=== PATIENT | female | born 1975 | race Two or more races ===

== ENCOUNTER 2019-12-09 14:01 | Outpatient (REF) | payer MEDICAID, SELFPAY ==
--- NOTE | 2019-12-09 14:06 | MM_ITS ---
EXAMINATION: MM SCREENING DIGITAL BREAST TOMOSYNTHESIS, BILATERAL CLINICAL INFORMATION: Screening. Asymptomatic. The lifetime risk of breast cancer based on the Tyrer-Cuzick Model is 7.2%. COMPARISON: Mammography: December 03, 2018 and studies dating back to August 10, 2014 TECHNIQUE: Digital breast tomosynthesis is performed in both the craniocaudal and mediolateral oblique views along with computer-aided detection (CAD). Synthesized 2D images are generated from the tomosynthesis. FINDINGS: There are scattered areas of fibroglandular density (ACR BI-RADS breast composition Category b). There are no significant masses, abnormal calcifications, or other abnormalities. MM/MM tomosynthesis screening BI IMPRESSION: There are no significant changes from prior study. ASSESSMENT: BI-RADS 1: Negative RECOMMENDATION: Routine annual mammography screening. This patient's information was entered into a reminder system with a target due date for their next mammogram.
== END 2019-12-09 14:02 | disposition home or self-care (01) ==
LOC: HO.MAMMO 14:01
PROVIDERS: Visit Provider Family Medicine
DX: Z12.31 Encounter for screening mammogram for malignant neoplasm of breast (principal)
CPT/HCPCS: 77063; 77067

== ENCOUNTER → 2020-04-14 13:59 | Outpatient (BNVA) | payer MEDICAID, SELFPAY | PROVIDERS: PCP Family Medicine; Visit Provider Advanced Practice Midwife ==

== ENCOUNTER 2021-01-16 12:40 | Outpatient (REF) | payer MEDICAID, SELFPAY ==
--- NOTE | ~2021-01-16 | MM_ITS ---
EXAMINATION: MM SCREENING DIGITAL BREAST TOMOSYNTHESIS, BILATERAL CLINICAL INFORMATION: Screening. Asymptomatic. The lifetime risk of breast cancer based on the Tyrer-Cuzick Model is 7%. COMPARISON: Mammography: 12/09/2019, 12/03/2018, 09/09/2017 TECHNIQUE: Digital breast tomosynthesis is performed in both the craniocaudal and mediolateral oblique views along with computer-aided detection (CAD). Synthesized 2D images are generated from the tomosynthesis. Additional right CC view is provided. FINDINGS: There are scattered areas of fibroglandular density (ACR BI-RADS breast composition Category b). There are no significant masses, abnormal calcifications, or other abnormalities. Parenchymal pattern is similar to prior studies. No developing density. No significant changes. MM/MM tomosynthesis screening BI IMPRESSION: No mammographic evidence of malignancy. ASSESSMENT: BI-RADS 1: Negative RECOMMENDATION: Routine annual mammography screening. This patient's information was entered into a reminder system with a target due date for their next mammogram.
== END 2021-01-16 12:41 | disposition home or self-care (01) ==
LOC: HO.MAMMO 12:40
PROVIDERS: PCP Family Medicine; Visit Provider Family Medicine
DX: Z12.31 Encounter for screening mammogram for malignant neoplasm of breast (principal)
CPT/HCPCS: 77063; 77067

== ENCOUNTER 2022-01-18 12:41 | Outpatient (REF) | payer MEDICAID, SELFPAY ==
--- NOTE | ~2022-01-18 | MM_ITS ---
EXAMINATION: MM SCREENING DIGITAL BREAST TOMOSYNTHESIS, BILATERAL CLINICAL INFORMATION: Screening. Asymptomatic. The lifetime risk of breast cancer based on the Tyrer-Cuzick Model is 7.4%. COMPARISON: Mammography: January 16, 2021 and studies dating back to August 10, 2014 TECHNIQUE: Digital breast tomosynthesis is performed in both the craniocaudal and mediolateral oblique views along with computer-aided detection (CAD). Synthesized 2D images are generated from the tomosynthesis. FINDINGS: There are scattered areas of fibroglandular density (ACR BI-RADS breast composition Category b). There are no significant masses, abnormal calcifications, or other abnormalities. MM/MM tomosynthesis screening BI IMPRESSION: No significant changes from prior exam. ASSESSMENT: BI-RADS 1: Negative RECOMMENDATION: Routine annual mammography screening. This patient's information was entered into a reminder system with a target due date for their next mammogram.
== END 2022-01-18 12:42 | disposition home or self-care (01) ==
LOC: HO.MAMMO 12:41
PROVIDERS: Visit Provider Family Medicine
DX: Z12.31 Encounter for screening mammogram for malignant neoplasm of breast (principal)
CPT/HCPCS: 77063; 77067

== ENCOUNTER 2022-06-12 08:58 | Outpatient (RCR) | payer MEDICAID, SELFPAY | END 2022-07-02 15:22 | disposition home or self-care (01) | LOC: HO.PT 08:58 | PROVIDERS: PCP Family Medicine; Visit Provider Family Medicine | DX: M25.512 Pain in left shoulder (principal); G89.29 Other chronic pain | CPT/HCPCS: 97110; 97162 ==

== ENCOUNTER 2022-08-01 11:03 | Outpatient (REF) | payer MEDICAID, SELFPAY ==
[2022-08-02 09:21] LABS: BV Int Neg Control Negative (Negative); BV Int Pos Control Positive (Positive)
== END 2022-08-01 11:04 | disposition home or self-care (01) ==
LOC: HO.LAB 11:03
PROVIDERS: PCP Family Medicine; Visit Provider Advanced Practice Midwife
DX: Z01.419 Encounter for gynecological examination (general) (routine) without abnormal findings (principal); N89.8 Other specified noninflammatory disorders of vagina; R23.2 Flushing
CPT/HCPCS: 87480; 87510; 87660

== ENCOUNTER 2022-08-01 11:36 | Outpatient (REF) | payer MEDICAID, SELFPAY ==
[2022-08-07 07:43] LABS: HPV mRNA E6/E7 rflx Not Detected (Not Detected)
== END 2022-08-01 11:37 | disposition home or self-care (01) ==
LOC: HO.LNP 11:36
PROVIDERS: Visit Provider Advanced Practice Midwife
DX: Z01.419 Encounter for gynecological examination (general) (routine) without abnormal findings (principal); N89.8 Other specified noninflammatory disorders of vagina
CPT/HCPCS: 87624; 88142

== ENCOUNTER 2022-09-17 09:59 | Outpatient (REF) | payer MEDICAID, SELFPAY ==
[2022-09-17 11:55] LABS: Estimated Average Glucose 88 mg/dL; Hemoglobin A1c % 4.7 %
[2022-09-17 13:08] LABS: Cholesterol 151 mg/dL; HDL Cholesterol 42 mg/dL; LDL Cholesterol Calculated 94 mg/dl; Triglycerides 79 mg/dL
[2022-09-17 13:10] LABS: TSH reflex Free T4 1.67 uIU/mL (0.32-4.0)
[2022-09-17 13:46] LABS: Reflex LDLD? No
== END 2022-09-17 10:00 | disposition home or self-care (01) ==
LOC: HO.LAB 09:59
PROVIDERS: Visit Provider Family Medicine
DX: E03.9 Hypothyroidism, unspecified (principal); E66.09 Other obesity due to excess calories; Z68.33 Body mass index [BMI] 33.0-33.9, adult; R73.01 Impaired fasting glucose
CPT/HCPCS: 36415; 80061; 83036; 84443

== ENCOUNTER 2022-10-19 18:07 | Outpatient (REF) | payer MEDICAID, SELFPAY ==
[2022-10-20 07:26] LABS: CT PCR NOT DETECTED (Not Detect.); NG PCR NOT DETECTED (Not Detect.)
[2022-10-20 14:13] LABS: BV Int Neg Control Negative (Negative); BV Int Pos Control Positive (Positive)
== END 2022-10-19 18:08 | disposition home or self-care (01) ==
LOC: HO.LNP 18:07
PROVIDERS: Visit Provider Registered Nurse
DX: N89.8 Other specified noninflammatory disorders of vagina (principal); R30.0 Dysuria
CPT/HCPCS: 0353U; 87086; 87088; 87186; 87480; 87510; 87660

== ENCOUNTER 2022-11-13 11:51 | Outpatient (REF) | payer MEDICAID, SELFPAY | END 2022-11-13 11:52 | disposition home or self-care (01) | LOC: HO.HOSX 11:51 | PROVIDERS: Visit Provider Orthopaedic Surgery | DX: Z13.89 Encounter for screening for other disorder (principal) ==

== ENCOUNTER 2023-01-24 12:17 | Outpatient (REF) | payer MEDICAID, SELFPAY ==
--- NOTE | ~2023-01-24 | MM_ITS ---
EXAMINATION: MM SCREENING DIGITAL BREAST TOMOSYNTHESIS, BILATERAL CLINICAL INFORMATION: Screening. Asymptomatic. COMPARISON: Mammography: 01/18/2022, 12/09/2019, 12/03/2018, 09/09/2017 TECHNIQUE: Digital breast tomosynthesis is performed in both the craniocaudal and mediolateral oblique views along with computer-aided detection (CAD). Synthesized 2D images are generated from the tomosynthesis. An additional right MLO with nipple in profile was included. FINDINGS: There are scattered areas of fibroglandular density (ACR BI-RADS breast composition Category b). There are no suspicious masses, suspicious grouped calcifications, or areas of architectural distortion in either breast. The parenchymal pattern is stable from prior exams. No skin or axillary changes. MM/MM tomosynthesis screening BI IMPRESSION: No mammographic evidence of malignancy. ASSESSMENT: BI-RADS BI-RADS 1 - Negative RECOMMENDATION: Routine annual mammography screening. 1 year F/U This examination should not preclude the clinical evaluation of a suspicious palpable abnormality. This patient's information was entered into a reminder system with a target due date for their next mammogram.
== END 2023-01-24 12:18 | disposition home or self-care (01) ==
LOC: HO.MAMMO 12:17
PROVIDERS: PCP Family Medicine; Visit Provider Family Medicine
DX: Z12.31 Encounter for screening mammogram for malignant neoplasm of breast (principal)
CPT/HCPCS: 77063; 77067

== ENCOUNTER → 2023-01-24 12:30 | Outpatient (BNV) | payer MEDICAID, SELFPAY | PROVIDERS: PCP Family Medicine; Visit Provider Radiology Diagnostic Radiology | DX: Z12.31 Encounter for screening mammogram for malignant neoplasm of breast (principal) | CPT/HCPCS: 77063; 77067 ==

== ENCOUNTER 2023-10-09 10:35 | Outpatient (AMB) | payer MEDICAID, SELFPAY ==
--- NOTE | 2023-10-09 10:46 | MHC.OFFVIS ---
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 She is doing well with no concerns. Current Mirena user, inserted September 2016. Occasional bleeding noted. Attempting to eat a healthy diet with calcium and vitamin D and stays active with exercise. Currently sexually active. Denies any vaginal dryness or irritation. STI testing offered; she accepts. Last pap smear; 2022. Last mammogram; 2022. Colonoscopy is UTD. Denies any family history of breast, ovarian or colon cancer. [facility] Medical History Hypothyroidism (acquired) Surgical History No history of previous surgery Family History Father HIV (human immunodeficiency virus infection) Maternal Grandmother HTN (hypertension) Social History Alcohol intake: current Alcohol intake frequency: a few times a month Patient Tobacco Use Status: Never used Tobacco Sexual orientation: Straight/Heterosexual Gender identity: Female Female Reproductive History Menstrual Age of Menarche: 13 control method: progestin IUCD (Mirena 10/04) Total pregnancies: 4 Full term: 2 Number of Living Children: 2 Ab induced: 1 Ab spontaneous: 1 Date of last pap smear: 08/01/22 (neg pap and hpv) Date of Mammogram: 01/24/23 (Birad 1) Review of Systems Const All systems reviewed & are unremarkable except as noted in HPI and below Reports as per HPI Eyes Reports no additional complaints ENT Reports no additional complaints Card Reports no additional complaints Resp Reports no additional complaints GI Reports as per HPI and Reports no additional complaints Reports as per HPI Musc Reports no additional complaints Skin/Breast Reports as per HPI Neuro Reports no additional complaints Psych Reports no additional complaints Endo Reports no additional complaints Zeus/Lymph Reports no additional complaints Aller/Immun Reports no additional complaints Physical Exam Vital Signs: Last Vital Signs BP 110/72 10/09/23 10:47 BMI result Body Mass Index 34.2 Const General: cooperative, healthy appearing, no acute distress, well developed and alert Orientation/consciousness: patient oriented x3 HEENT Head: Yes normal to inspection Eyes General: appearance normal, both eyes and all related structures Neck Neck: Yes normal visual inspection Thyroid: Thyroid normal Chest Chest palpation & inspection: normal inspection of the chest and other (no puckering, dimpling, peau de orange, retraction, discharge, masses) Breast/axilla inspection: normal inspection of the breasts Breast/axilla palpation: normal palpation of the breasts Resp Effort & Inspection: normal respiratory effort GI Inspection: Yes normal to inspection Palpation (GI): Soft to palpation Rectal Exam - Female: deferred General: Yes bladder normal to palpation External Female Exam: normal external appearance and normal appearance of the urethra Speculum Exam - Vagina: normal appearance of the vagina, normal palpation and normal vaginal discharge Speculum Exam - Cervix: normal appearance of the cervix, normal palpation and Other cervical findings present (IUD string short at os) Bimanual exam- vagina & uterus: normal bimanual exam, normal palpation, uterine size normal, bladder normal to palpation, normal palpation and non-tender Bimanual Exam- Adnexa, other: no masses Skin General skin exam: no rashes or lesions noted Rashes: no rashes Neuro General: patient oriented x3 Cognition (Neuro): normal cognition Extrem General: Yes normal to inspection Psych Attitude: cooperative Thought process: Normal thought process present Assessment & Plan Assessment & Plan (1) Encounter for well woman exam with routine gynecological exam: Code(s): Z01.419 - Encounter for gynecological examination (general) (routine) without abnormal findings Category: Medical Plan Discussed: Current recommendations for pap smears per ASCCP guidelines. Breast awareness, periodic self breast exams and yearly mammogram. Maintain a healthy lifestyle, well balanced diet including Calcium 1,200 mg and Vitamin D 600 IU daily, and routine exercise. Review plan for IUD removal at next visit. Use of condoms if indicated to prevent STDs. Patient verbalizes understanding and agrees to the plan of care. She was given opportunity to ask questions and all questions were answered to the best of my ability. RTO in 1 year for annual machine fur cleaner exam. This note is constructed using voice recognition software. While every effort has been made to ensure accuracy, skate shop attendant errors may have been included. Coding Level of Care Code Est Pt Prev Care 40-64y(96396) Diagnoses Encounter for well woman exam with routine gynecological exam Z01.419
[2023-10-09 10:47] VITALS: BP 110/72; BMI 34.2
== END 2023-10-09 11:13 | disposition home or self-care (01) ==
PROVIDERS: PCP Family Medicine; Visit Provider Advanced Practice Midwife
DX: Z01.419 Encounter for gynecological examination (general) (routine) without abnormal findings (principal)
CPT/HCPCS: 99396

== ENCOUNTER → 2023-10-09 10:35 | Outpatient (BNVA) | payer MEDICAID, SELFPAY | PROVIDERS: PCP Family Medicine; Visit Provider Advanced Practice Midwife | DX: Z01.419 Encounter for gynecological examination (general) (routine) without abnormal findings (principal) | CPT/HCPCS: 99396 ==

== ENCOUNTER 2024-04-27 09:53 | Outpatient (REF) | payer OTHER, SELFPAY ==
--- OUTSIDE RECORDS SUMMARY | 2024-04-27 10:50 | XMS_ITS | Encounter Summary ---
Author Organization [employer] Address [address] [facility] [address] [place] [address] Care Team Providers Care Corporate Legal Secretary Name Role Phone Alexus Rizzo MD Primary Care Provider [phone] Reason for Visit * Reason Comments Pre-visit Planning SDOH screening posit miky and Tobacco screening negative Encounter Details Date Type Department Care Team ([facility] st Contact Info) Description 04/15/2024 Patient Outreach [facility] MEDICINE [address] [place], [place] [phone] Alexus Rizzo MD [address] [place], [place] [phone] Pre-visit Planning (SDOH screening positive and Tobacco screening negative) Social History Tobacco Use Types Packs/Day Years Used Date Smoking Tobacco: Former Cigarettes 0.3 18 S tarted: 04/23/2006 Passive Smoke Exposure: Past Smokeless Tobacco: Never Housing Stability Answer Date Recorded What is your housing situation today? I have arti lovett 02/18/[address] you li ve. Do you have problems with any of the following? None of the above 02/18/2024 Food Insecurity Answer Date Recorded Within the past 12 months, y ou worried that your food would run out before you got money to buy more: Sometimes True 2023 Within the past 12 months,th e food you bought just didn't last and you didn't have enough money to get more: Sometimes True 02/18/2024 Transportation Answer Date Recorded In the past 12 months, has l ack of transportation kept you from medical appts, meetings, work or from getting things needed for daily living? No 02/18/2024 Utilities Answer Date Recorded In the past 12 months, has t he electric, gas, oil or water company threatened to shut off services in your home? No 02/18/2024 Internet Access Answer Date Recorded Internet Access Q1 Yes 02/18/2024 Internet Access Q2 Not on file 02/18/2024 Comments Unknown Sex and Gender Information Value Date Recorded Sex Assigned at Female 12/18/2021 10:16 AM EDT Legal Sex Female 10:16 AM EDT Gender Identity Female 12/18/2021 10:16 AM EDT Sexual Orientation Straight 12/18/2021 10 :16 AM EDT documented as of this encounter Progress Notes * Elvie Henriquez - 04/15/2024 2:40 PM EST CC Elvie Barr placed successful outbound call to patient for pre-visit planning. Patient name and confirmed. Patient confirms appt date and time, and has transportation arrangements. Biggest concern for appointment at this time is will discuss her concerns when she sees PCP in person. Patient advised to bring to appointment a photo id and insurance card. Appropriate screenings completed in anticipation of appointment. SDOH positive. Patient looking for assistance with Food insecurities: Sometimes. Referral will be placed. documented in this encounter Plan of Treatment Not on file documented as of this encounter Visit Diagnoses Not on filedocumented in this encounter Care Teams Corporate Legal Secretary Relationship Specialty Start Date End Date Alexus Rizzo MD [address] [place] [phone] PCP - General Family Medicine 02/18/18 documented as of this encounter
--- OUTSIDE RECORDS SUMMARY | 2024-04-27 10:50 | XMS_ITS | Encounter Summary ---
Author Organization [employer] Address [address] [facility] 7[address] [place] [address] Care Team Providers Care Health Evaluator Name Role Phone Alexus Rizzo MD Primary Care Provider [phone] Reason for Visit * Reason Onset Date Comments Chart Prep 04/03/2024 Encounter Details Date Type Department Care Team (Late st Contact Info) Description 04/03/2024 Telephone [facility] MEDICINE [address] [place], [place] [phone] Alexus Rizzo MD [address] [place], [place] [phone] Chart Prep Social History Tobacco Use Types Packs/Day Years [...] AM EDT documented as of this encounter Miscellaneous Notes * Telephone Encounter - Tiffany Youssef [place] - 04/03/2024 10:51 AM EST Chart Prep Labs: done Images: not done Vaccines due: Covid Due, Tdap Due, Hep B Due, PCV20 Due, Flu Due, and Shingles in pharmacy Due Referrals: Not Applicable Screenings: Colonoscopy and HIV screening Overdue care gaps: Sbirt and PHQ-9 documented in this encounter Plan of Treatment Not on file documented as of this encounter Visit Diagnoses Not on filedocumented in this encounter Care Teams Health Evaluator Relationship Specialty Start Date End Date Alexus Rizzo MD [address] [place] [phone] PCP - General Family Medicine 02/18/18 documented as of this encounter
--- OUTSIDE RECORDS SUMMARY | 2024-04-27 10:50 | XMS_ITS | Encounter Summary ---
Author Organization [employer] Address [address] [facility] 7[address] [place] [address] Care Team Providers Care Commercial Loan Administrator Name Role Phone Alexus Rizzo MD Primary Care Provider [phone] Reason for Visit * Reason Comments Care Coordination CHW outreach for SDO H PT-1 and food needs-LVM Encounter Details Date Type Department Care Team (Latest Contact Info) Description 04/15/2024 Patient Outreach [facility] MEDICINE [address] [place], [place] [phone] Alexus Rizzo MD [address] [place], [place] [phone] Care Coordination (CHW outreach for SDOH PT-1 and food needs-LVM ) Social History Tobacco Use Types Packs/Day Years Used Date Smoking Tobacco: Former Cigarettes 0.3 18 S tarted: 04/23/2006 Passive Smoke Exposure: Past Smokeless Tobacco: Never Housing Stability Answer Date Recorded What is your housing situation today? I have artiesteban lovett 02/18/[address] you [...] as of this encounter Progress Notes * All Zepeda - 04/15/2024 3:01 PM EST CHW All Zepeda, placed outbound call to patient for assistance with SDOH as a referral was placed by the provider. Patient had screened positive for the following SDOH insecurities. No answer atthis time. Patient's name and were not confirmed. CHW left detailed message and provided contact information requesting return call for assistance. Patient educated on extended clinic hours on Mondays through Wednesdays, and Walk-In Urgent Care Located in [facility]. Patient provided with after-hours line for [facility], , which offer night time triage service and option to transfer toon call provider if needed. documented in this encounter Plan of Treatment Not on file documented as of this encounter Visit Diagnoses Not on filedocumented in this encounter Care Teams Commercial Loan Administrator Relationship Specialty Start Date End Date Alexus Rizzo MD [address] [place] [phone] PCP - General Family Medicine 02/18/18 documented as of this encounter
--- OUTSIDE RECORDS SUMMARY | 2024-04-27 10:50 | XMS_ITS | Encounter Summary ---
Author Organization [employer] Address [address] [facility] [address] [place] [address] Care Team Providers Care Surgical Manager Name Role Phone Alexus Rizzo MD Primary Care Provider Reason for Referral * Medications - Closed Specialty Diagnoses / Procedures Referred By [facility] branch Referred To Contact Diagnoses Class 2 severe obesity due to excess calories with serious comorbidity and body mass index (BMI) of 36.0 to 36.9 in adult ([facility]) Alexus Rizzo MD [address] [place] [address] Phone: tel: fax: Referral ID Status Reason Start Date Expiration Date Visits Re quested Visits Authorized [id number] Closed 04/27/2024 04/27/2025 1 1 * Medications - Closed Specialty Diagnoses / Procedures Referred By Porfirio branch Referred To Contact Diagnoses Intrinsic atopic dermatitis Alexus Rizzo MD [address] [place] [address] Phone: tel: fax: Referral ID Status Reason Start Date Expiration Date Visits Re quested Visits Authorized [id number] Closed 04/27/2024 04/27/2025 1 1 Encounter Details Date Type Department Care Team (Late st Contact Info) Description 04/27/2024 9:00 AM EDT Office Visit [facility] MEDICINE [address] [place] [address] Alexus Rizzo MD [address] [place] [address] [phone] Routine general medical examination at a health care facility (Primary Dx); Chronic left shoulder pain; Impaired fasting glucose; Acquired hypothyroidism; Intrinsic atopic dermatitis; Food allergy; Allergic rhinitis, unspecified seasonality, unspecified trigger; Dietary counseling; Exercise counseling; Class 2 severe obesity due to excess calories with serious comorbidity and body mass index (BMI) of 36.0 to 36.9 in adult ([facility]); Screening for lipid disorders; Screening for diabetes mellitus; Vitamin D deficiency; Encounter for immunization Social History Tobacco Use Types Packs/Day Years Used Date Smoking Tobacco: Former Cigarettes 0.3 18 S tarted: 04/23/2006 Passive Smoke Exposure: Past Smokeless Tobacco: Never Tobacco Cessation:Counseling Given: Not Answered Depression Answer Date Recorded Patient Health Questionnaire-9 Score 12 04/27/2024 Patient Health Questionnaire-9 Score 12 04/27/2024 Last PHQ-9: Questionnaire Data Not on file 0 04/27/2024 Housing Stability Answer Date Recorded What is [...] off services in your home? No 02/18/2024 Depression Answer Date Recorded Patient Health Questionnaire-2 Score 2 04/27/2024 Internet Access Answer Date Recorded Internet Access Q1 Yes 02/18/2024 Internet Access Q2 Not on file 02/18/2024 Comments Unknown Sex and Gender Information Value Date Recorded Sex Assigned at Female 12/18/2021 10:16 AM EDT Legal Sex Female 10:16 AM EDT Gender Identity Female 12/18/2021 10:16 AM EDT Sexual Orientation Straight 12/18/2021 10 :16 AM EDT documented as of this encounter Last Filed Vital Signs Vital Sign Reading Time Taken Comments Blood Pressure 110/67 04/27/2024 9:06 AM EDT Pulse 78 04/27/2024 9:06 AM EDT Temperature 36.1 ??C (96.9 ??F) 04/27/2024 9:06 AM ED T Respiratory Rate 12 04/27/2024 9:06 AM EDT Oxygen Saturation - - Inhaled Oxygen Concentration - - Weight 91.3 kg (201 lb 3.2 oz) 04/27/2024 9:06 A M EDT Height 157.5 cm (5' 2 ) 04/27/2024 9:06 AM EDT Body Mass Index 36.8 04/27/2024 9:06 AM EDT documented in this encounter Miscellaneous Notes * Assessment & Plan Note - Enid Mcmanus MA - 04/27/2024 9:43 AM EDTAssociated Problem(s): Obesity - Completed Phentermine. Will start GLP 1 Zepbound 04/27/24 * Assessment & Plan Note - Enid Mcmanus MA - 04/27/2024 8:57 AM EDTAssociated Problem(s): Allergic rhinitis -previously antihistamine -take as needed * Assessment & Plan Note - Enid Mcmanus MA - 04/27/2024 8:57 AM EDTAssociated Problem(s): Food allergy - allergic reaction to blueberry - continue avoidance - refer for allergy testing - continue carrying Epi-pen * Assessment & Plan Note - Enid Mcmanus MA - 04/27/2024 8:57 AM EDTAssociated Problem(s): Intrinsic atopic dermatitis - referred to traffic law attorney -liberal moisturization -judicious use of topical steroid -avoid irritation * Assessment & Plan Note - Enid Mcmanus MA - 04/27/2024 8:57 AM EDTAssociated Problem(s): Impaired fasting glucose - diabetes screen * Assessment & Plan Note - Enid Mcmanus MA - 04/27/2024 8:57 AM EDTAssociated Problem(s): Acquired hypothyroidism Richie's autoimmune thyroiditis Last lab:11/01/20 TSH 1.85 Current replacement: levothyroxine 112 mcg daily Continue current replacement. * Assessment & Plan Note - Enid Mcmanus MA - 04/27/2024 8:56 AM EDTAssociated Problem(s): Chronic left shoulder pain - likely tendinitis - she attended PT, and is not doing home exercise program - judicious use of NSAIDs and APAP - give X-ray order again documented in this encounter Plan of Treatment Scheduled Orders Name Type Priority Associated Diagnoses Orde r Schedule TSH with Reflex to Free T4 Lab Routine Acquired hypothyroidism Expected: 04/27/2024 (Approximate), Expires: 04/26/2025 Hemoglobin A1c Lab Routine Impaired fasting glucose Screening for diabetes mellitus Expected: 04/27/2024 (Approximate), Expires: 04/26/2025 Comprehensive Metabolic Panel Lab Routine Class 2 severe obesity due to excess calories with serious comorbidity and body mass index (BMI) of 36.0 to 36.9 in adult ([facility]) Expected: 04/27/2024 (Approximate), Expires: 04/26/2025 Lipid Panel with Reflex to Direct LDL Lab Routine Class 2 severe obesity due to excess calories with serious comorbidity and body mass index (BMI) of 36.0 to 36.9 in adult ([facility]) Screening for lipid disorders Expected: 04/27/2024 (Approximate), Expires: 04/26/2025 Vitamin D, 25-Hydroxy, Total, Immunoassay Lab Routine Vitamin D deficiency Expected: 04/27/2024 (Approximate), Expires: 04/27/2025 documented as of this encounter Visit Diagnoses Diagnosis Routine general medical examination at a health care facility- Primary Chronic left shoulder pain Pain in joint, shoulder region Impaired fasting glucose Acquired hypothyroidism Unspecified hypothyroidism Intrinsic atopic dermatitis Food allergy Dermatitis due to food taken internally Allergic rhinitis, unspecified seasonality, unspecified trigger Dietary counseling Dietary surveillance and counseling Exercise counseling Class 2 severe obesity due to excess calories with serious comorbidity and body mass index (BMI) of 36.0 to 36.9 in adult ([facility]) Screening for lipid disorders Screening for diabetes mellitus Vitamin D deficiency Encounter for immunization documented in this encounter Additional Health Concerns Assessment Noted Time PHQ-9 Depression Total Score: 12 025 10:10 AM EDT documented as of this encounter Care Teams Surgical Manager Relationship Specialty Start Date End Date Alexus Rizzo MD [address] [place] [phone] PCP - General Family Medicine 02/18/18 documented as of this encounter
--- OUTSIDE RECORDS SUMMARY | 2024-04-27 10:50 | XMS_ITS | Encounter Summary ---
Author Organization [employer] Address 75 [facility] 7t [place] [address] Care Team Providers Care Mail Handler Sorter Name Role Phone Alexus Rizzo MD Primary Care Provider [phone] Reason for Visit * Reason Onset Date Comments chart prep 04/23/2024 Encounter Details Date Type Department Care Team (Late st Contact Info) Description 04/23/2024 Telephone [facility] MEDICINE [address] [place], [place] [phone] Alexus Rizzo MD [address] [place], [place] [phone] chart prep Social History Tobacco Use Types Packs/Day Years [...] encounter Miscellaneous Notes * Telephone Encounter - Jojo Haider [place] - 04/23/2024 9:18 AM EST ..chart Prep Labs: not applicable Images: not applicable Vaccines due: Covid Due, Tdap Due, Hep B Due, and Flu Due Referrals: Not Applicable Screenings: Colonoscopy Overdue care gaps: Sbirt, PHQ-9, and meli-7 documented in this encounter Plan of Treatment Not on file documented as of this encounter Visit Diagnoses Not on filedocumented in this encounter Care Teams Mail Handler Sorter Relationship Specialty Start Date End Date Alexus Rizzo MD [address] [place] [address] PCP - General Family Medicine 02/18/18 documented as of this encounter
--- OUTSIDE RECORDS SUMMARY | 2024-04-27 10:51 | XMS_ITS | Encounter Summary ---
Author Organization [employer] Address 75 [facility] 7t [place] [address] Care Team Providers Care Sand And Gravel Plant Operator Name Role Phone Alexus Rizzo MD Primary Care Provider [phone] Reason for Visit * Reason Onset Date Comments Medication Question 02/01/2023 Encounter Details Date Type Department Care Team ([facility] st Contact Info) Description 02/01/2023 Telephone [facility] MEDICINE [address] [place], [place] [phone] Alexus Rizzo MD [address] [place], [place] [phone] Medication Question Social History Tobacco Use Types Packs/Day Years Used Date Smoking Tobacco: Some Days Cigarettes 0.3 18 Started: 04/23/2006 Passive Smoke Exposure: Past Smokeless Tobacco: Never Comments Unknown Sex and Gender Information Value Date Recorded Sex Assigned at Female 12/18/2021 10:16 AM EDT Legal Sex Female 10:16 AM EDT Gender Identity Female 12/18/2021 10:16 AM EDT Sexual Orientation Straight 12/18/2021 10 :16 AM EDT documented as of this encounter Miscellaneous Notes * Telephone Encounter - Alexus Rizzo MD - 02/01/2023 4:22 PM EST Spoke with the pt and reviewed side effect of phentermine. Pt would like to try. Phentermine 15 mg daily script sent. May need higher dose, but will assess in 3 mo. * Telephone Encounter - Brian Dunn - 02/01/2023 10:08 AM EST Tc from pt requesting clarification on weight loss medication discussed during follow up 09/11/22. Please contact pt at [phone]. documented in this encounter Plan of Treatment Not on file documented as of this encounter Visit Diagnoses Not on filedocumented in this encounter Care Teams [employer] Gra[employer] Plant Operator Relationship Specialty Start Date End Date Alexus Rizzo MD [address] [place] [id number] PCP - General Family Medicine 02/18/18 documented as of this encounter
--- OUTSIDE RECORDS SUMMARY | 2024-04-27 10:51 | XMS_ITS | Clinical Summary ---
Author Organization [employer] Address 75 [facility] 7t [place] [address] Care Team Providers Care Transport Rn Name Role Phone Alexus Rizzo MD Primary Care Provider [phone] Allergies Active Allergy Reactions Criticality Noted Date Comments Vaccinium Angustifolium 07/20/[address] [facility] Medications EPINEPHrine (Epipen) 0.3 MG/0.3ML injection syringeIndicati ons:Food allergy Inject 0.3 mL (0.3 mg) as directed 1 (one) time for 1 dose. use as directed for allergic reaction and then call 911 if you develop difficulty breathing or swelling. 1 each 2 05/09/19 23 Active levothyroxine (Synthroid, Levoxyl) 112 MCG tablet TAKE 1 TABLET BY MOUTH EVERY DAY 90 tablet 1 01/03/20 24 Active betamethasone dipropionate (Diprosone) 0.05 % ointmentIndicat ions:Intrinsic atopic dermatitis Apply topically 2 times daily. to affected area 15 g 04/28/19 25 Active Tirzepatide-Moisés ght Management (Zepbound) 2.5 MG/0.5ML solution auto-injectorIn dications:Class 2 severe obesity due to excess calories with serious comorbidity and body mass index (BMI) of 36.0 to 36.9 in adult ([facility]) Inject 0.5 mL (2.5 mg) under the skin 1 (one) time per week. 2 mL 11 04/28/19 25 Active betamethasone dipropionate (Diprolene) 0.05 % ointmentIndicat ions:Intrinsic atopic dermatitis APPLY TO AFFECTED AREA TWICE A DAY 15 g 01/01/20 23 025 Discontinued(R eorder (will not trigger notification to Pharmacy)) phentermine 15 MG capsule Take 1 capsule (15 mg) by mouth before breakfast. 90 capsule 02/02/20 025 Discontinued(M ed list cleanup (will not trigger notification to Pharmacy)) Active Problems Problem Noted Date Diagnosed Date Psychophysiological insomnia 09/15/2022 Assessment & Plan (09/15/2022 4:35 PM EDT): - avoid caffeinated beverage - recommended to avoid screen time 1-2 hours before going to bed Food allergy 05/13/2022 Assessment & Plan (04/27/2024 8:57 AM EDT): - allergic reaction to blueberry - continue avoidance - refer for allergy testing - continue carrying Epi-pen Assessment & Plan (05/13/2022 7:23 AM EDT): - allergic reaction to blueberry - continue avoidance - refer for allergy testing - continue carrying Epi-pen Moderate episode of recurrent major depressive d isorder 05/08/2022 Assessment & Plan (09/15/2022 4:36 PM EDT): -continue fluoxetine -pt was referred to counseling but has not called back because of her busy schedule -she was able to contract her safety today -refer back again Assessment & Plan (05/08/2022 3:05 PM EDT): -continue fluoxetine -pt was referred to counseling but has not called back because of her busy schedule -she was able to contract her safety today -advised to recontact counseling when she has more free time Intrinsic atopic dermatitis 05/08/2022 Assessment & Plan (04/27/2024 8:57 AM EDT): - referred to family manager -liberal moisturization -judicious use of topical steroid -avoid irritation Assessment & Plan (09/15/2022 4:34 PM EDT): - referred to family manager -liberal moisturization -judicious use of topical steroid -avoid irritation Assessment & Plan (05/08/2022 3:08 PM EDT): Will refer to Dermatology -liberal moisturization -judicious use of topical steroid -avoid irritation Skin tag 05/08/2022 Assessment & Plan (05/08/2022 3:11 PM EDT): Will refer to Dermatology for removal Chronic left shoulder pain 05/08/2022 Assessment & Plan (04/27/2024 8:56 AM EDT): - likely tendinitis - she attended PT, and is not doing home exercise program - judicious use of NSAIDs and APAP - give X-ray order again Assessment & Plan (09/15/2022 4:32 PM EDT): - likely tendinitis - she attended PT, and is not doing home exercise program - judicious use of NSAIDs and APAP - give X-ray order again Assessment & Plan (05/13/2022 7:21 AM EDT): - likely tendinitis - evaluate with X-ray - start PT - judicious use of NSAIDs and APAP Acquired hypothyroidism 05/11/2015 Assessment & Plan (04/27/2024 8:57 AM EDT): Richie's autoimmune thyroiditis Last lab:11/01/20 TSH 1.85 Current replacement: levothyroxine 112 mcg daily Continue current replacement. Assessment & Plan (09/15/2022 4:33 PM EDT): Richie's autoimmune thyroiditis Last lab:11/01/20 TSH 1.85 Current replacement: levothyroxine 112 mcg daily Continue current replacement. Assessment & Plan (05/08/2022 3:06 PM EDT): Richie's autoimmune thyroiditis Last lab:11/01/20 TSH 1.85 Current replacement: levothyroxine 112 mcg daily Continue current replacement. Impaired fasting glucose 07/31/2014 Assessment & Plan (04/27/2024 8:57 AM EDT): - diabetes screen Assessment & Plan (09/15/2022 4:33 PM EDT): - diabetes screen Assessment & Plan (05/13/2022 7:21 AM EDT): - diabetes screen Allergic rhinitis 07/20/2014 Assessment & Plan (04/27/2024 8:57 AM EDT): -previously antihistamine -take as needed Assessment & Plan (05/13/2022 7:24 AM EDT): -previously antihistamine -take as needed Obesity 11/20/2011 Assessment & Plan (04/27/2024 9:43 AM EDT): - Completed Phentermine. Will start GLP 1 Zepbound 04/27/24 Encounters Date Type Department Care Team Description 04/27/2024 9:00 AM EDT Office Visit [address] [address] Alexus Rizzo MD Routine general medical examination at a health care facility (Primary Dx); Chronic left shoulder pain; Impaired fasting glucose; Acquired hypothyroidism; Intrinsic atopic dermatitis; Food allergy; Allergic rhinitis, unspecified seasonality, unspecified trigger; Dietary counseling; Exercise counseling; Class 2 severe obesity due to excess calories with serious comorbidity and body mass index (BMI) of 36.0 to 36.9 in adult ([facility]); Screening for lipid disorders; Screening for diabetes mellitus; Vitamin D deficiency; Encounter for immunization 04/27/2024 Travel 04/23/[address] [address] Alexus Rizzo MD chart prep 04/15/2024 Patient Outreach [address] [address] Alexus Rizzo MD Care Coordination (CHW outreach for SDOH PT-1 and food needs-LVM ) 04/15/2024 Patient Outreach [address] [address] Alexus Rizzo MD Pre-visit Planning (SDOH screening positive and Tobacco screening negative) 04/03/[address] [address] Alexus Rizzo MD Chart Prep 02/27/[address] [phone] Alexus Rizzo MD Nurse Triage 02/18/2024 Patient Outreach [address] [address] Alexus Rizzo MD Care Coordination (CHW outreach for SDOH PT-1 and food needs-LVM ) 02/18/2024 Patient Outreach [address] [address] Alexus Rizzo MD Pre-visit Planning (SDOH Screening positive and Tobacco screening negative) 02/13/[address] [phone] Alexus Rizzo MD Chart Prep from Last 3 Months Immunizations Name Administration Dates Next Due Influenza injectable quadriv alent IIV4 with preservative 12/03/2017 Influenza injectable quadrivalent preservative f ree 01/12/2019 Influenza, Split (incl. purified surface antigen ) 11/06/2012,02/08/2012 Influenza, seasonal, injectable, preservative fr ee 04/27/2024 Pfizer Covid-19 Vaccine 12+ 04/27/2024 Pneumococcal Conjugate PCV 20 04/27/2024 Pneumococcal Polysaccharide PPSV23 02/09/2011 Tdap 04/27/2024,02/09/2011 Social History Tobacco Use Types Packs/Day Years [...] Orientation Straight 12/18/2021 10 :16 AM EDT Last Filed Vital Signs Vital Sign Reading Time Taken Comments Blood Pressure 110/67 04/27/2024 9:06 AM EDT Pulse 78 04/27/2024 9:06 AM EDT Temperature 36.1 ??C (96.9 ??F) 04/27/2024 9:06 AM ED T Respiratory Rate 12 04/27/2024 9:06 AM EDT Oxygen Saturation 96% 10/19/2022 9:49 AM EDT Inhaled Oxygen Concentration - - Weight 91.3 kg (201 lb 3.2 oz) 04/27/2024 9:06 A M EDT Height 157.5 cm (5' 2 ) 04/27/2024 9:06 AM EDT Body Mass Index 36.8 04/27/2024 9:06 AM EDT Plan of Treatment Health Maintenance Due Date Last Done Comments CT Colonography 1973 Colonoscopy 1973 Colorectal Cancer Screening 1973 FIT DNA/Cologuard 1973 FIT 1973 FOBT 1973 Sigmoidoscopy 1973 Family Planning (PISQ) 1988 Hepatitis B Vaccines (1 of 3 - 19+ 3-dose series) 1992 Pap Smear 1994 Zoster Vaccines (1 of 2) 07/20/2023 Depression Monitoring (PHQ-9) 10/28/2024 04/27/2024, 04/27/2024 Mammogram 01/24/2025 01/24/2023, 12/0 02/2021, 01/18/2022, Additional history exists SDOH Screening 04/15/2025 04/15/2024 Alcohol/Substance Use Screening 04/27/2025 04/27/2024 Depression Screening 04/27/2025 04/27/2024, 04/28/19 Tobacco Screening 04/27/2025 04/27/2024 Cervical Cancer Screening 08/02/2027 HPV/Cotest 08/02/2027 08/01/2022 Lipid Panel 09/18/2027 09/17/2022, 12/17/2019 DTaP/Tdap/Td Vaccines (3 - Td or Tdap) 04/27/2034 04/27/2024, 02/09/2011 RSV Patients and Patients Aged 60 years or older (1 - 1-dose 75+ series) 2048 COVID-19 Vaccine Completed 04/27/2024, , 06/27/2020, Additional history exists Influenza Vaccine Completed 04/27/2024, , 12/03/2017, Additional history exists Pneumococcal Vaccine: 50+ Years Completed 04/27/2024, 02/09/2011 HIB Vaccines Aged Out No longer eligi ble based on patient's age to complete this topic HIV Screening Discontinued HPV Vaccines Aged Out No longer eligi ble based on patient's age to complete this topic Hepatitis A Vaccines Aged Out No long er eligible based on patient's age to complete this topic Hepatitis C Screening Discontinued IPV Vaccines Aged Out No longer eligi ble based on patient's age to complete this topic Meningococcal Vaccine Aged Out No reanna carina eligible based on patient's age to complete this topic RSV under 20 months Aged Out No longe r eligible based on patient's age to complete this topic Rotavirus Vaccines Aged Out No longer eligible based on patient's age to complete this topic Procedures Procedure Name Priority Date/Time Associated Diagnosis Comments BI MAMMOGRAM SCREENING TOMOSYNTHESIS BILATERAL Routine 01/24/2023 12:30 PM EST LIPID PANEL WITH REFLEX TO DIRECT LDL Routine 09/17/2022 10:17 AM EDT Class 1 obesity due to excess calories without serious comorbidity with body mass index (BMI) of 33.0 to 33.9 in adult HPV MRNA E6/E7 REFLEX TO HPV 16, 18/45 Routine 08/01/2022 11:36 AM EDT from Last 3 Months or Most Recently Relevant to Health Maintenance Results * BI Mammogram Screening Tomosynthesis Bilateral (01/24/2023 12:30 PM EST) Anatomical Region Laterality Modality Breast Bilateral Mammography 01/24/2023 12:3 0 PM EST Narrative 01/31/2023 11:05 AM EST ? [facility] ? [address] ?[place] [address] ? Mammography Report ? Signed ? Patient: Bassem,Ekaterina ?MR#: [id number] ? : 1975 ?Acct:[id number] ? Age/Sex: 47 / F ?ADM Date: 01/24/ ? Loc: HO.MAMMO ? Attending Dr: Alexus Rizzo MD ? Ordering Physician: Alexus Rizzo MD ?Results: 1Negative ? Date of Service: 01/24/ ?Follow Up: 1 Year From Orig ?? inal Mammogram ? Procedure(s): MM tomosynthesis screening BI ?? Accession Number(s): [id number] ? cc: Alexus Rizzo MD ? EXAMINATION: ?? MM SCREENING DIGITAL BREAST TOMOSYNTHESIS, BILATERAL ? CLINICAL INFORMATION: ? Screening. Asymptomatic. ? COMPARISON: ?? Mammography: 01/18/2022, 12/09/2019, 12/03/2018, 09/09/2017 ? TECHNIQUE: ?? Digital breast tomosynthesis is performed in both the craniocaudal and ?? mediolateral oblique views along with computer-aided detection (CAD). ?? Synthesized 2D images are generated from the tomosynthesis. ??An ?? additional right MLO with nipple in profile was included. ? FINDINGS: ?? There are scattered areas of fibroglandular density (ACR BI-RADS breast ?? composition Category b). ? There are no suspicious masses, suspicious grouped calcifications, or ?? areas of architectural distortion in either breast. The parenchymal ?? pattern is stable from prior exams. ??No skin or axillary changes. ? MM/MM tomosynthesis screening BI ?? IMPRESSION: ?? No mammographic evidence of malignancy. ? ASSESSMENT: ? BI-RADS BI-RADS 1 - Negative ? RECOMMENDATION: ?? Routine annual mammography screening. ? 1 year F/U ? This examination should not preclude the clinical evaluation of a ?? suspicious palpable abnormality. ? This patient's information was entered into a reminder system with a ?? target due date for their next mammogram. ? Dictated By: ?Simon Drew MD ? Signed By: ?<Electronically signed by Simon Drew MD in OV> ?01/31/23 1101 ? DD/ 1230 ? TD/TT: ? Anesthesiologists' Assistant: ? Procedure Note Margaret Loza - 01/31/2023 [facility] [address] [place] [address] [place] [address] Mammography Report Signed Patient: Ekaterina LuevanoMR#: [id number] : 1975Acct:[id number] Age/Sex: 47 / FADM Date: 01/24/23 Loc: HO.MAMMO Attending Dr: Alexus Rizzo MD Ordering Physician: Alexus Rizzo MDResults: 1Negative Date of Service: 01/24/23Follow Up: 1 Year From Orig ina Mammogram Procedure(s): MM tomosynthesis screening BI Accession Number(s): [id number] cc: Alexus Rizzo MD EXAMINATION: MM SCREENING DIGITAL BREAST TOMOSYNTHESIS, BILATERAL CLINICAL INFORMATION: Screening. Asymptomatic. COMPARISON: Mammography: 01/18/2022, 12/09/2019, 12/03/2018, 09/09/2017 TECHNIQUE: Digital breast tomosynthesis is performed in both the craniocaudal and mediolateral oblique views along with computer-aided detection (CAD). Synthesized 2D images are generated from the tomosynthesis. An additional right MLO with nipple in profile was included. FINDINGS: There are scattered areas of fibroglandular density (ACR BI-RADS breast composition Category b). There are no suspicious masses, suspicious grouped calcifications, or areas of architectural distortion in either breast. The parenchymal pattern is stable from prior exams. No skin or axillary changes. MM/MM tomosynthesis screening BI IMPRESSION: No mammographic evidence of malignancy. ASSESSMENT: BI-RADS BI-RADS 1 - Negative RECOMMENDATION: Routine annual mammography screening. 1 year F/U This examination should not preclude the clinical evaluation of a suspicious palpable abnormality. This patient's information was entered into a reminder system with a target due date for their next mammogram. Dictated By: Simon Drew MD Signed By: <Electronically signed by Simon Drew MD in OV> 01/31/23 1101 DD/ 1230 TD/TT: Anesthesiologists' Assistant: us Alexus Rizzo MD IMG BI PROCEDURES Final Result * Lipid Panel with Reflex to Direct LDL (09/17/2022 10:17 AM EDT) Triglycerides 79 mg/dL [facility] Comment:Desirable Triglyceri de: less than 150 mg/dLBorderline High Triglyceride 150-199 mg/dLHigh Triglyceride: 200-499 mg/dLVery High Triglyceride: greater than or equal to 5OO mg/dL Cholesterol 151 mg/dL [facility] Comment:Desirable Cholestero l: less than 200 mg/dLBorderline High Cholesterol: 200-239 mg/dLHigh Cholesterol: greater than 239 mg/dL LDL Cholesterol Calculated 94 mg/dl [facility] Comment:Desirable LDL: less than 100 mg/dLNear Optimal/Above Optimal LDL: 110- 129 mg/dLBorderline High LDL: 130-159 mg/dLHigh LDL: 160-189 mg/dLVery High LDL: greater than or equal to 190 mg/dL HDL Cholesterol 42 mg/dL [facility] Comment:Desirable HDL: great er than 40 mg/dL Note: This HDL assay may give artificially low results in patients with liver disease. Blood 09/17/2022 10:1 7 AM EDT 09/17/2022 10:17 AM EDT Alexus Rizzo MD LAB BLOOD ORDERABLES Final Resul t [facility] [address] [place] [address] [phone] from Last 3 Months or Most Recently Relevant to Health Maintenance Insurance [facility] Care Teams Transport Rn Relationship Specialty Start Date End Date Alexus Rizzo MD [address] [place] [id number] PCP - General Family Medicine 02/18/18
--- OUTSIDE RECORDS SUMMARY | 2024-04-27 10:51 | XMS_ITS | Encounter Summary ---
Author Organization [employer] Address [address] [facility] [address] 7[address] [place] [address] Care Team Providers Care Vice President Underwriting Name Role Phone Alexus Rizzo MD Primary Care Provider [phone] Encounter Details Date Type Department Care Team (Latest Contact Info) Description 04/27/2024 Travel Social History Tobacco Use Types Packs/Day Years Used Date Smoking Tobacco: Former Cigarettes 0.3 18 S tarted: 04/23/2006 Passive Smoke Exposure: Past Smokeless Tobacco: Never Depression Answer Date Recorded Patient Health Questionnaire-9 [...] AM EDT documented as of this encounter Plan of Treatment Not on file documented as of this encounter Visit Diagnoses Not on filedocumented in this encounter Additional Health Concerns Assessment Noted Time PHQ-9 Depression Total Score: 12 025 10:10 AM EDT documented as of this encounter Care Teams Vice President Underwriting Relationship Specialty Start Date End Date Alexus Rizzo MD [address] [place] [address] PCP - General Family Medicine 02/18/18 documented as of this encounter
--- OUTSIDE RECORDS SUMMARY | 2024-04-27 10:51 | XMS_ITS | Encounter Summary ---
Author Organization [employer] Address 75 [facility] 7t [place] [address] Care Team Providers Care Disability Manager Name Role Phone Alexus Rizzo MD Primary Care Provider [phone] Encounter Details Date Type Department Care Team (Late st Contact Info) Description 02/01/2023 Orders Only [facility] MEDICINE [address] [place], [place] [phone] Alexus Rizzo MD [address] [place], [place] [phone] Social History Tobacco Use Types Packs/Day Years [...] on filedocumented in this encounter Care Teams Disability Manager Relationship Specialty Start Date End Date Alexus Rizzo MD [address] [place], [place] [phone] PCP - General Family Medicine 02/18/18 documented as of this encounter
[2024-04-27 11:40] LABS: Estimated Average Glucose 97 mg/dL; Hemoglobin A1C 112.9797 umol/L
[2024-04-27 12:06] LABS: Alanine Aminotransferase 22 U/L (0-31); Alkaline Phosphatase 92 U/L (39-117); Anion Gap 11 (12-20); Aspartate Amino Transferase 21 U/L (5-31); Bilirubin Total 0.6 mg/dL (0.0-1.0); Blood Urea Nitrogen 13 mg/dL (9-16); Carbon Dioxide 23 mmol/L (22-29); Chloride 111 mmol/L (96-108); Cholesterol 192 mg/dL (<200); Estimated Glomerular Filt Rate > 60; Glucose Random 102 mg/dL (60-115); HDL Cholesterol 52 mg/dL (>40); LDL Cholesterol Calculated 109 mg/dL (<100); Sodium 141 mmol/L (135-145); TSH reflex Free T4 0.54 uIU/mL (0.32-4.0); Triglycerides 157 mg/dL (<150); Vitamin D 25-OH Total 38.1 ng/mL (>30)
[2024-04-27 13:21] LABS: Reflex LDLD? No
== END 2024-04-27 09:54 | disposition home or self-care (01) ==
LOC: HO.HHCL 09:53
PROVIDERS: Visit Provider Family Medicine
DX: Z13.220 Encounter for screening for lipoid disorders (principal); R73.01 Impaired fasting glucose; E03.9 Hypothyroidism, unspecified; E66.812 Obesity, class 2; E66.01 Morbid (severe) obesity due to excess calories; Z68.36 Body mass index [BMI] 36.0-36.9, adult; E55.9 Vitamin D deficiency, unspecified
CPT/HCPCS: 36415; 80053; 80061; 82306; 83036; 84443

== ENCOUNTER 2024-06-05 08:37 | Outpatient (REF) | payer OTHER, SELFPAY ==
--- NOTE | ~2024-06-05 | US_ITS ---
EXAMINATION: MM DIAGNOSTIC DIGITAL BREAST TOMOSYNTHESIS, BILATERAL Bilateral Limited ultrasound. CLINICAL INFORMATION: Physician felt palpable lumps in the upper outer quadrants of both breasts. Right breast pain comes and goes. COMPARISON: Mammography: Comparison is made with relevant prior exams. TECHNIQUE: Digital breast mammography with tomosynthesis is performed in both the craniocaudal and mediolateral oblique views along with computer-aided detection (CAD). FINDINGS: There are scattered areas of fibroglandular density (ACR BI-RADS breast composition Category b). There are no significant masses, abnormal calcifications, or other abnormalities. Targeted color Doppler ultrasound scanning in the areas of the patient's palpable lumps upper outer quadrants demonstrates normal fibroglandular breast tissue. In the right breast area of pain demonstrates normal fibroglandular breast tissue. Scanning was performed to the right breast from 9-1 o'clock and left breast 12-5 o'clock. There is no sonographic abnormality. Results are provided to the patient at time of visit by the technologist. US/US breast BI limited mamm only IMPRESSION: No mammographic or sonographic abnormality to account for the patient's right breast pain and bilateral physician felt palpable lumps. Recommend clinical evaluation and follow-up. ASSESSMENT: BI-RADS BI-RADS 1 - Negative RECOMMENDATION: 1 year F/U This patient's information was entered into a reminder system with a target due date for their next mammogram. Electronically signed by: Lydia Whalen DO 06/05/2024 02:57 PM EDT
--- OUTSIDE RECORDS SUMMARY | 2024-06-05 08:57 | XMS_ITS | Encounter Summary ---
Author Organization [employer] Address 75 [facility] 7t [place] [address] Care Team Providers Care Branch Logistics Supervisor Name Role Phone Alexus Rizzo MD Primary Care Provider [phone] Encounter Details Date Type Department Care Team (Late st Contact Info) Description 02/01/2023 Orders Only [facility] MEDICINE [address] [place], [place] [phone] Alexus Rizzo MD [address] [place], [place] [phone] Social History Tobacco Use Types Packs/Day Years Used Date Smoking Tobacco: Some Days Cigarettes 0.3 18.1 Started: 04/23/2006 Passive Smoke Exposure: Past Smokeless [...] on filedocumented in this encounter Care Teams Branch Logistics Supervisor Relationship Specialty Start Date End Date Alexus Rizzo MD [address] [place] [address] PCP - General Family Medicine 02/18/18 documented as of this encounter
--- OUTSIDE RECORDS SUMMARY | 2024-06-05 08:57 | XMS_ITS | Encounter Summary ---
Author Organization [employer] Address 75 [facility] 7t [place] [address] Care Team Providers Care Case Operator Name Role Phone Alexus Rizzo MD Primary Care Provider [phone] Reason for Visit * Reason Onset Date Comments Medication Question 02/01/2023 Encounter Details Date Type Department Care Team ([facility] st Contact Info) Description 02/01/2023 Telephone [facility] MEDICINE [address] [place], [place] [phone] Alexus Rizzo MD [address] [place], [place] [phone] Medication Question Social History Tobacco Use Types [...] follow up 09/11/22. Please contact pt at [phone]. documented in this encounter Plan of Treatment Not on file documented as of this encounter Visit Diagnoses Not on filedocumented in this encounter Care Teams Case Operator Relationship Specialty Start Date End Date Alexus Rizzo MD [address] [place] [address] PCP - General Family Medicine 02/18/18 documented as of this encounter
--- OUTSIDE RECORDS SUMMARY | 2024-06-05 08:58 | XMS_ITS | Clinical Summary ---
Author Organization [employer] Address [address] [facility] [address] [place] [address] Care Team Providers Care Agency Legal Counsel Name Role Phone Alexus Rizzo MD Primary Care Provider [phone] Allergies Active Allergy Reactions Criticality Noted Date Comments Vaccinium Angustifolium 07/20/2014 blueberries Medications EPINEPHrine (Epipen) 0.3 MG/0.3ML injection syringeIndication s:Food allergy Inject 0.3 mL (0.3 mg) as directed 1 (one) time for 1 dose. use as directed for allergic reaction and then call 911 if you develop difficulty breathing or swelling. 1 each 2 3 Active levothyroxine (Synthroid, Levoxyl) 112 MCG tablet TAKE 1 TABLET BY MOUTH EVERY DAY 90 tablet 1 4 Active betamethasone dipropionate (Diprosone) 0.05 % ointmentIndicatio ns:Intrinsic atopic dermatitis Apply topically 2 times daily. to affected area 15 g 5 Active Tirzepatide-Weigh t Management (Zepbound) 2.5 MG/0.5ML solution auto-injectorIndi cations:Class 2 severe obesity due to excess calories with serious comorbidity and body mass index (BMI) of 36.0 to 36.9 in adult ([facility]) Inject 0.5 mL (2.5 mg) under the skin 1 (one) time per week. 2 mL 11 5 Active Active Problems Problem Noted Date Diagnosed Date [...] depressive d isorder 05/08/2022 Assessment & Plan (05/01/2024 10:02 AM EDT): - PHQ 9 score 12, GAD7 score 3 today, 04/28/23 - previously on fluoxetine -pt was referred to counseling but has not called back because of her busy schedule -she was able to contract her safety today Assessment & Plan (09/15/2022 4:36 PM EDT): [...] atopic dermatitis 05/08/2022 Assessment & Plan (04/27/2024 1:50 PM EDT): - referred to wide load escort -liberal moisturization -judicious use of topical steroid -avoid irritation - Prescribed betamethasone dipropionate (Diprosone) 0.05 % ointment 04/27/24 Assessment & Plan (09/15/2022 4:34 PM EDT): - referred to wide load escort -liberal moisturization -judicious use of topical steroid -avoid irritation Assessment & Plan (05/08/2022 3:08 PM EDT): Will refer to Dermatology -liberal moisturization -judicious use of topical steroid -avoid irritation Skin tag 05/08/2022 Assessment & Plan (05/08/2022 3:11 PM EDT): Will refer to Dermatology for removal Chronic left shoulder pain 05/08/2022 Assessment & Plan (05/01/2024 10:00 AM EDT): - likely tendinitis - she attended PT, and is not doing home exercise program - judicious use of NSAIDs and APAP Assessment & Plan (09/15/2022 4:32 PM EDT): - likely tendinitis - she attended PT, and is not doing home exercise program - judicious use of NSAIDs and APAP - give X-ray order again Assessment & Plan (05/13/2022 7:21 AM EDT): - likely tendinitis - evaluate with X-ray - start PT - judicious use of NSAIDs and APAP Acquired hypothyroidism 05/11/2015 Assessment & Plan (05/01/2024 10:01 AM EDT): Richie's autoimmune thyroiditis Last lab: therapeutic in August 2023 Current replacement: levothyroxine 112 mcg daily Continue [...] as needed Obesity 11/20/2011 Assessment & Plan (05/01/2024 10:00 AM EDT): - Completed Phentermine. Will start GLP 1 Zepbound 2.5 mg 04/27/24 - continue working on lifestyle modifications Dietary Recommendations: Fruits, vegetables, whole grains, protein foods, and fat-free or low-fat dairy products are healthy choices. Eat different types of protein foods in your diet. This can include seafood, lean meats, poultry, beans, peas, lentils, nuts, seeds, soy products, and eggs. Limit foods and beverages higher in added sugars, saturated fat, and sodium. Exercise Recommendations: At least 150 minutes of moderate-intensity physical activity per week, or an equivalent combination of moderate- and vigorous-intensity activity Encounters Date Type Department Care Team Description 05/05/[address] [phone] Alexus Rizzo MD Prior Authorization ([facility] Request: betamethasone dipropionate (Diprosone) 0.05 % ointment ) 05/05/[address] [address] Alexus Rizzo MD Prior Authorization ([facility] Request: Zepbound) 04/27/2024 9:00 AM EDT Office Visit [address] [phone] Alexus Rizzo MD Routine general medical examination at a health care facility (Primary Dx); Chronic left shoulder pain; Impaired fasting glucose; Acquired hypothyroidism; Intrinsic atopic dermatitis; Food allergy; Allergic rhinitis, unspecified seasonality, unspecified trigger; Dietary counseling; Exercise counseling; Class 2 severe obesity due to excess calories with serious comorbidity and body mass index (BMI) of 36.0 to 36.9 in adult ([facility]); Screening for lipid disorders; Screening for diabetes mellitus; Vitamin D deficiency; Encounter for immunization; Pain of both breasts; Colon cancer screening; Moderate episode of recurrent major depressive disorder ([facility]) 04/27/2024 Travel 04/23/[address] [phone] Alexus Rizzo MD chart prep 04/15/2024 Patient Outreach [address] [phone] Alexus Rizzo MD Care Coordination ([facility] outreach for SDOH PT-1 and food needs-LVM ) 04/15/2024 Patient Outreach [address] [phone] Alexus Rizzo MD Pre-visit Planning (SDOH screening positive and Tobacco screening negative) 04/03/[address] [phone] Alexus Rizzo MD Chart Prep from Last [...] Used Date Smoking Tobacco: Former Cigarettes 0.3 18.1 S tarted: 04/23/2006 Passive Smoke Exposure: Past [...] Vaccines (1 of 2) 07/20/2023 Depression Monitoring 10/28/2024 04/27/2024, 025 Mammogram 01/24/2025 01/24/2023, 12/0 02/2021, 01/18/2022, Additional history exists SDOH Screening 04/15/2025 04/15/2024 Alcohol/Substance Use Screening 04/27/2025 04/27/2024 Depression Screening 04/27/2025 04/27/2024, 04/28/19 25 Tobacco Screening 04/27/2025 04/27/2024 Cervical Cancer Screening 08/02/2027 HPV/Cotest 08/02/2027 08/01/2022 Lipid Panel 04/27/2029 04/27/2024, 07/3 02/2022, 12/17/2019 DTaP/Tdap/Td Vaccines (3 - Td or [...] Procedure Name Priority Date/Time Associated Diagnosis Comments VITAMIN D,25-OH,TOTAL,IA Routine 04/27/2024 9:55 AM EDT Vitamin D deficiency LIPID PANEL WITH REFLEX TO DIRECT LDL Routine 04/27/2024 9:55 AM EDT Class 2 severe obesity due to excess calories with serious comorbidity and body mass index (BMI) of 36.0 to 36.9 in adult ([facility]) Screening for lipid disorders COMPREHENSIVE METABOLIC PANEL Routine 04/27/2024 9:55 AM EDT Class 2 severe obesity due to excess calories with serious comorbidity and body mass index (BMI) of 36.0 to 36.9 in adult ([facility]) HEMOGLOBIN A1C Routine 04/27/2024 9:55 AM EDT Impaired fasting glucose Screening for diabetes mellitus TSH W/REFLEX TO FT4 Routine 04/27/2024 9 :55 AM EDT Acquired hypothyroidism BI MAMMOGRAM SCREENING TOMOSYNTHESIS BILATERAL Routine 01/24/2023 12:30 PM EST HPV MRNA E6/E7 REFLEX TO HPV 16, 18/45 Routine 08/01/2022 11:36 AM EDT from Last 3 Months or Most Recently Relevant to Health Maintenance Results * Vitamin D, 25-Hydroxy, Total, Immunoassay (04/27/2024 9:55 AM EDT) Vitamin D 25-OH Total 38.1 >30 ng/mL [facility] Comment:Health Based Referen ce Values*< 20 ng/mL [id number] ng/mL Insufficient> 30 ng/mL Sufficient*Jesus CABRERA. N Engl J Med. 2007;357:266-280Care must be taken in interpreting Vitamin D results fromdifferent laboratories and methodologies. Published datademonstrated that results from patients undergoinghemodialysis may show a negative bias when tested withvarious automated 25-OH vitamin D assays when compared toLC-MS/MS.When testing samples from patients whose predominant form ofVitamin D is Vitamin D2, such as patients receiving VitaminD2 supplementation, results that are subtherapeutic shouldbe confirmed with another method such as LC-MS/MS. Blood Venous blood specimen / Unknown 04/27/2024 9:55 AM EDT 04/27/2024 11:24 AM EDT Alexus Rizzo MD LAB BLOOD ORDERABLES Final Resul t Performing Organization Address City/[facility] Co de Phone Number [facility] [address] [place] [phone] * TSH with Reflex to Free T4 (04/27/2024 9:55 AM EDT) TSH reflex Free T4 0.54 0.32 - 4.0 uIU/mL [facility] Blood 04/27/2024 9:55 AM EDT 04/27/2024 11:24 AM EDT Alexus Rizzo MD LAB BLOOD ORDERABLES Final Resul t Performing Organization Address [facility] Co de Phone Number [facility] [address] [place] [phone] * (ABNORMAL) Lipid Panel with Reflex to Direct LDL (04/27/2024 9:55 AM EDT) Triglycerides 157(H) <150 mg/dL [facility] Comment:Desirable Triglyceri de: less than 150 mg/dLBorderline High Triglyceride 150-199 mg/dLHigh Triglyceride: 200-499 mg/dLVery High Triglyceride: greater than or equal to 5OO mg/dL Cholesterol 192 <200 mg/dL [facility] Comment:Desirable Cholestero l: less than 200 mg/dLBorderline High Cholesterol: 200-239 mg/dLHigh Cholesterol: greater than 239 mg/dL LDL Cholesterol Calculated 109(H) <100 mg/dL [facility] Comment:Desirable LDL: less than 100 mg/dLNear Optimal/Above Optimal LDL: 110- 129 mg/dLBorderline High LDL: 130-159 mg/dLHigh LDL: 160-189 mg/dLVery High LDL: greater than or equal to 190 mg/dL HDL Cholesterol 52 >40 mg/dL [facility] Comment:Desirable HDL: great er than 40 mg/dL Note: This HDL assay may give artificially low results in patients with liver disease. Blood 04/27/2024 9:55 AM EDT 04/27/2024 11:24 AM EDT us Alexus Rizzo MD LAB BLOOD ORDERABLES Final Resul t Performing Organization Address [facility] Co de Phone Number [facility] [address] [place] [address] [phone] * Hemoglobin A1c (04/27/2024 9:55 AM EDT) Hemoglobin A1c 5.0 <6.0 % [facility] Comment:Hemoglobin A1C Refer ence Range Adults: 4.8 - 6.0 % Non diabetic: < 6.0 % Goal: < 7.0 %Additional Action Suggested: > 8.0 %Note: Hemoglobin A1c results are invalid for patients with abnormal amounts of HbF. Blood transfusions may impact the HbA1c concentration in the patient sample. Estimated Average Glucose 97 mg/dL [facility] Comment:eAG = Estimated ave rage glucose which is %A1C expressed asaverage glucose, using the formula of the A3I-JxzzeolAjphutk Glucose study (ADAG), Diabetes Care, Vol.31,#8,Sep. 2007 Blood Venous blood specimen / Unknown 04/27/2024 9:55 AM EDT 04/27/2024 11:24 AM EDT us Alexus Rizzo MD LAB BLOOD ORDERABLES Final Resul t Performing Organization Address [facility] Co de Phone Number [facility] [address] [place] [phone] * (ABNORMAL) Comprehensive Metabolic Panel (04/27/2024 9:55 AM EDT) Sodium 141 135 - 145 mmol/L [facility] Potassium 4.0 3.3 - 5.1 mmol/L [facility] Chloride 111(H) 96 - 108 mmol/L [facility] Carbon Dioxide 23 22 - 29 mmol/L [facility] Anion Gap 11(L) 12 - 20 [facility] Urea Nitrogen (BUN) 13 9 - 16 mg/dL [facility] Creatinine, Serum 0.61 0.5 - 1.4 mg/dL [facility] Estimated Glomerular Filt Rate >60 [facility] Comment:Chronic Kidney Disea se: Estimated GFR < 60 mL/min/1.82s0Eefgfa Kidney Disease: Estimated GFR < 15 mL/min/1.73m2 Glucose 102 60 - 115 mg/dL [facility] Calcium 9.0 8.4 - 10.2 mg/dL [facility] Bilirubin, Total 0.6 0.0 - 1.0 mg/dL [facility] Aspartate Amino Transferase 21 5 - 31 U/L [facility] Alanine Aminotransferase 22 0 - 31 U/L [facility] Total Protein 8.0 6.5 - 8.0 g/dL [facility] Albumin Level 4.0 3.5 - 5.0 g/dL [facility] Alkaline Phosphatase 92 39 - 117 U/L [facility] Blood Venous blood specimen / Unknown 04/27/2024 9:55 AM EDT 04/27/2024 11:24 AM EDT us Alexus Rizzo MD LAB BLOOD ORDERABLES Final Resul t [facility] [address] [place], [place] [phone] * BI Mammogram Screening Tomosynthesis Bilateral (01/24/2023 12:30 PM EST) Anatomical Region Laterality Modality Breast Bilateral Mammography 01/24/2023 12:3 0 PM EST Narrative 01/31/2023 11:05 AM EST ? [facility] ? [address] ?[place] [address] ? Mammography Report ? Signed ? Patient: Bassem,Ekaterina ?MR#: [id number] ? : 1975 ?Acct:[id number] ? Age/Sex: 47 / F ?ADM Date: 01/24/23 ? Loc: HO.MAMMO ? Attending Dr: Alexus Rizzo MD ? Ordering Physician: Alexus Rizzo MD ?Results: 1Negative ? Date of Service: 01/24/23 ?Follow Up: 1 Year From Orig ?? inal Mammogram ? Procedure(s): MM tomosynthesis screening BI ?? Accession Number(s): [id number] ? cc: Alexus Rizzo MD ? EXAMINATION: [...] signed by Simon Drew MD in OV> ?01/31/231 ? DD/ 1230 ? TD/TT: ? Brand Development Manager: ? Procedure Note Dago, Image - 01/31/2023 [facility] [address] [place] [address] Mammography Report Signed Patient: Anthony Luevano#: [id number] : 1975Acct:[id number] Age/Sex: 47 / FADM Date: 01/24/23 Loc: [facility] Attending Dr: Alexus Rizzo MD Ordering Physician: Alexus Rizzo MDResults: 1Negative Date of Service: 01/24/23Follow Up: 1 Year From Orig ina Mammogram Procedure(s): MM tomosynthesis screening BI Accession Number(s): [id number] cc: Alexus Rizzo MD EXAMINATION: MM SCREENING [...] in OV> 01/31/23 1101 DD/ 1230 TD/TT: Brand Development Manager: [facility] So [facility] IMG BI PROCEDURES Final Result from Last 3 Months or Most Recently Relevant to Health Maintenance Insurance [facility] Care Teams Agency Legal Counsel Relationship Specialty Start Date End Date Alexus Rizzo MD [address] [place] [phone] PCP - General Family Medicine 02/18/18
== END 2024-06-05 08:38 | disposition home or self-care (01) ==
LOC: HO.MAMMO 08:37
PROVIDERS: PCP Family Medicine; Visit Provider Family Medicine
DX: N64.4 Mastodynia (principal)
CPT/HCPCS: 76642; 77062; 77066

== ENCOUNTER → 2024-06-05 08:45 | Outpatient (BNV) | payer OTHER, SELFPAY | PROVIDERS: PCP Family Medicine; Visit Provider Internal Medicine | DX: N63.11 Unspecified lump in the right breast, upper outer quadrant (principal); N63.21 Unspecified lump in the left breast, upper outer quadrant | CPT/HCPCS: 76642; 77062; 77066 ==

== ENCOUNTER 2024-09-02 14:33 | Outpatient (AMB) | payer OTHER, SELFPAY ==
--- NOTE | 2024-09-02 14:34 | A.OFFVIS_ITS ---
Vital Signs 3 09/02/24 14:36 Height 5 ft 2 in Weight 182 lb 15.739 oz BMI 33.5 BP 112/78 Blood Pressure Location Lt brachial Position Sitting Pulse 86 Intake Visit Reasons: COLO Screening, Constipation Intake Note: Ekaterina presents in the office colonoscopy screening. CC: She states that her Dr told her she needs to come have a colonoscopy. Coal Getter Required: No Allergies No Known Allergies Allergy (Verified 09/02/24 14:36) HPI HPI COLO Screening, Constipation: Details: 49-year-old female here for preprocedural meeting to discuss a screening colonoscopy. She is referred by [facility]. PMX Obesity-BMI 33 Impaired fasting glucose Allergic rhinitis Hypothyroid Chronic left shoulder pain Plantar fasciitis Atopic dermatitis Allergy to blueberries Depression * SURGICAL HISTORY * ALLERGIES: NKDA * [employer] LABS: Laboratory Tests 04/27/24 09:55 Estimated GFR > 60 Total Bilirubin 0.6 AST 21 ALT 22 Alkaline Phosphatase 92 TSH 0.54 TODAY'S VISIT This is her first colonoscopy. she denies any upper GI problems and she suffers occasional CIC that responds well to Mylanta. She is naive to anesthesia and sedation. She denies any cardiac or respiratory problems. No ID problems. There is no known FHX of crc or polyps. ON LICENSE OF [facility] Medical History Hot flashes Encounter for well woman exam with routine gynecological exam Encounter for annual routine gynecological examination Hypothyroidism (acquired) Surgical History History of section No history of previous surgery Family History Father HIV (human immunodeficiency virus infection) Maternal Grandmother HTN (hypertension) Social History Alcohol intake: current Alcohol intake frequency: a few times a month Patient Tobacco Use Status: Never used Tobacco Sexual orientation: Straight/Heterosexual Gender identity: Female Female Reproductive History Menstrual Age of Menarche: 13 Review of Systems Const Denies fatigue, Denies fever(s), Denies night sweats, Denies poor appetite and Denies weight loss ENT Reports Normal hearing present, Denies dental pain, Denies dysphagia, Denies hearing loss, Denies mouth pain, Denies odynophagia, Denies throat swelling, Denies tongue swelling and Reports other (Dentition adequate) Card Reports no additional complaints Resp Reports no additional complaints GI Details: Denies abdominal pain, Denies melena, Denies bloating, Denies hematochezia, Reports constipation, Denies GI cramping, Denies dysphagia, Denies excessive flatus, Denies early satiety, Denies heartburn, Denies diarrhea, Denies nausea, Denies odynophagia, Denies vomiting and Denies hematemesis Skin/Breast Denies pruritus, Denies lesions, Denies rash and Denies jaundice Neuro Reports Normal hearing present and Denies Abnormal speech present Endo Denies fatigue Aller/Immun Denies throat swelling and Denies tongue swelling Physical Exam Vital Signs: Last Vital Signs Pulse 86 09/02/24 14:36 BP 112/78 09/02/24 14:36 BMI result Body Mass Index 33.5 Const General: cooperative, no acute distress, well developed and well groomed Nutritional Appearance: well nourished and obese Orientation/consciousness: oriented to person, oriented to place and oriented to time Limitations: No language barrier HEENT Head: Yes normocephalic and Yes atraumatic Eyes General: appearance normal, both eyes and all related structures Pupils: Equal, round and reactive pupils present Neck Neck: Yes normal visual inspection and Yes no lymphadenopathy Thyroid: Thyroid normal Resp Effort & Inspection: normal respiratory effort and able to speak in complete sentences Auscultation: clear to auscultation bilaterally Cardio Rate: regular rate Rhythm: regular rhythm Heart sounds: Normal, physiologic split S2 sound present Peripheral pulses: radial pulses present and posterior tibial pulses present GI Inspection: No distended, No Abdominal panniculus present, Yes obesity and Yes striae Palpation (GI): Soft to palpation, nontender, no guarding, not rigid and No hepatosplenomegaly present Percussion: Yes normal to percussion Auscultation: normal bowel sounds Rectal Exam - Female: deferred Abdomen image: 2 1. scar Skin General skin exam: no rashes or lesions noted, turgor normal, skin not dry, no jaundice, No spider nevi and no striae Rashes: no rashes Nails: normal Neuro General: oriented to person, oriented to place and oriented to time Cranial nerves: Yes Equal, round and reactive pupils present and Yes Normal hearing present Speech: No Abnormal speech present Extrem General: Yes normal to inspection, No clubbing, No cyanosis and No edema Psych Appearance: grossly normal and well kempt Mental Status: mental status grossly normal Speech and movement: Normal speech and movement present Affect: normal affect Attitude: cooperative Thought process: Normal thought process present and not confabulating Thought content: Normal thought content present Insight: Good insight present (Psych) Judgement: Good judgement present (Psych) Assessment & Plan Assessment & Plan (1) Pre-op examination: Code(s): Z01.818 - Encounter for other preprocedural examination Category: Medical (2) Obesity (BMI 30.0-34.9): Code(s): E66.811 - Obesity, class 1 Category: Medical Plan This is her first colonoscopy. she denies any upper GI problems and she suffers occasional CIC that responds well to Mylanta. She is naive to anesthesia and sedation. She denies any cardiac or respiratory problems. No ID problems. There is no known FHX of crc or polyps. Orders: Orders 2 Colonoscopy - GI Use Only Today Z01.818 - Encounter for other preprocedural examination Medications: New 2 sodium,potassium,mag sulfates 17.5-3.13-1.6 gram (Suprep Bowel Prep Kit) 480 mL orally; FOR COLONOSCOPY PREP 354 mL 0RF Coding Level of Care Code New Pt Level 3 (62092) Diagnoses Pre-op examination Z01.818 Obesity (BMI 30.0-34.9) E66.811
[2024-09-02 14:36] VITALS: BP 112/78; PULSE 86; BMI 33.5
--- OUTSIDE RECORDS SUMMARY | 2024-09-02 15:12 | XMS_ITS | Encounter Summary ---
Author Organization [employer] Address [address] [facility] [address] [place] [address] Care Team Providers Care Forestry Engineer Name Role Phone Alexus Rizzo MD Primary Care Provider [phone] Encounter Details Date Type Department Care Team (Late st Contact Info) Description 02/01/2023 Orders Only [facility] MEDICINE [address] [place], [place] [phone] Alexus Rizzo MD [address] [place], [place] [phone] Social History Tobacco Use Types Packs/Day Years Used Date Smoking Tobacco: Some Days Cigarettes 0.3 18.4 Started: 04/23/2006 Passive Smoke Exposure: Past Smokeless [...] on filedocumented in this encounter Care Teams Forestry Engineer Relationship Specialty Start Date End Date Alexus Rizzo MD [address], [place] [phone] PCP - General Family Medicine 02/18/18 documented as of this encounter
== END 2024-09-02 15:11 | disposition home or self-care (01) ==
PROVIDERS: PCP Family Medicine; Visit Provider Nurse Practitioner
DX: Z01.818 Encounter for other preprocedural examination (principal); Z12.11 Encounter for screening for malignant neoplasm of colon; E66.811 Obesity, class 1; Z68.33 Body mass index [BMI] 33.0-33.9, adult
CPT/HCPCS: 99203

== ENCOUNTER → 2024-09-02 14:33 | Outpatient (BNVA) | payer OTHER, SELFPAY | PROVIDERS: PCP Family Medicine; Visit Provider Nurse Practitioner | DX: Z01.818 Encounter for other preprocedural examination (principal); E66.811 Obesity, class 1; Z68.33 Body mass index [BMI] 33.0-33.9, adult | CPT/HCPCS: 99202 ==